=== PATIENT | female | born 1945 | race Two or more races ===

== ENCOUNTER 2019-07-27 19:42 | Inpatient (IN) | payer OTHER ==
[~2019-07-27] VITALS: Ht 134.6 cm; Wt 47.6 kg
--- NOTE | 2019-07-27 19:48 | NUR ---
BIB FROM [facility] FOR BIZZARE BEHAVIOR. PT FOUND WAND[address]RE[address], APPEARS CONFUSED. PER RA, BS 104. PATIENT ALTERED. ORIENTED TO NAME ONLY. PATIENT CHANGED INTOG OWN, ATTACHED TO THE GOLD BEATER. KEPT COMFORTABLE. NEEDS ATTENDED.
[2019-07-27 20:52] LABS: BASOPHILS % (AUTO) 0.4 % (0.0-2.0); EOSINOPHILS % (AUTO) 2.1 % (0.0-6.0); HEMATOCRIT 38 % (33-45); HEMOGLOBIN 12.7 g/dL (11.5-14.8); LYMPHOCYTES # (AUTO) 1.5 /CMM (0.8-4.8); LYMPHOCYTES % (AUTO) 30.4 % (20.0-44.0); MEAN CORPUSCULAR HGB CONC 34 g/dl (31.0-36.0); MEAN CORPUSCULAR VOLUME 97 fL (82-100); MONOCYTES # (AUTO) 0.4 /CMM (0.1-1.30); MONOCYTES % (AUTO) 8.1 % (2.0-12.0); NEUTROPHILS # (AUTO) 2.9 /CMM (1.8-8.9); PLATELET COUNT (AUTO) 218 /CMM (150-450); RED BLOOD CELL COUNT(AUTO) 3.89 MIL/uL (4.0-5.2); WHITE BLOOD COUNT (AUTO) 4.9 K/uL (4.3-11.0)
[2019-07-27] MEDS ORDERED: OLANZAPINE 10 MG VIAL IM ONE ×2 (20:59→21:00)
[2019-07-27 21:00] LABS: APPEARANCE,URINE Clear (CLEAR); BILIRUBIN,URINE Negative (NEGATIVE); BLOOD, URINE Small Ery/uL (NEGATIVE); COLOR,URINE Yellow (YELLOW); KETONES,URINE Negative (NEGATIVE); LEUKOCYTE ESTERASE ,URINE Negative (NEGATIVE); NITRITE, URINE Negative (NEGATIVE); PROTEIN,URINE Negative (NEGATIVE); UGLUCOSE Negative (NEGATIVE); UROBILINOGEN,URINE 0.2 EU/dL (0.2)
[2019-07-27 21:11] LABS: BACTERIA,URINE Few /HPF (None Seen); SQUAMOUS EPITHELIAL CELL,UR Few /HPF (None Seen); WBC,URINE 0-2 /HPF (0-3)
[2019-07-27 21:14] LABS: CALCIUM, SERUM 9.1 mg/dL (8.5-10.1); CARBON DIOXIDE 32 mmol/L (21-32); CHLORIDE 103 mmol/L (98-107); CREATININE 0.7 mg/dL (0.6-1.3); GLUCOSE 90 mg/dL (74-106); SODIUM SERUM 140 mmol/L (136-145); UREA NITROGEN, BLOOD 17 mg/dL (7-18)
[2019-07-27 21:18] LABS: ALANINE AMINOTRANSFERASE 18 U/L (12-78); ALBUMIN 4.1 g/dL (3.4-5.0); ALKALINE PHOSPHATASE 59 U/L (46-116); ASPARTATE AMINOTRANSFERASE 20 U/L (15-37); BILIRUBIN,DIRECT 0.1 mg/dL (0.0-0.2); BILIRUBIN,TOTAL 0.4 mg/dL (0.2-1.0)
[2019-07-27 21:23] LABS: ACETAMINOPHEN < 5 ug/ml (10-30); ALCOHOL, BLOOD < 3 mg/dL (0-0); SALICYLATE 1.5 mg/dL (2.8-20.0)
[2019-07-27 21:48] LABS: THYROID STIMULATING HORMONE 4.105 uIU/mL (0.358-3.74)
--- NOTE | 2019-07-27 22:01 | NUR ---
CT UNSUCCESSFUL, PATIENT MOVING AROUND TOO MUCH. Addendum: 07/27/19 at 2210 by ROALCANCES ADDENDUM: DR. MCCAULEY MADE AWARE, NO NEW ORDER AT THIS TIME.
--- NOTE | 2019-07-27 22:07 | NUR ---
CALLED NURSING SUP FOR M/S BED.
--- NOTE | 2019-07-27 22:23 | NUR ---
Patient is resting comfortably in bed with eyes closed. Easily aroused. VSS
[2019-07-27] MEDS ORDERED: ACETAMINOPHEN 325 MG TABLET PO PRN (22:30)
[2019-07-27] MEDS ORDERED: ZOLPIDEM TARTRATE 5 MG TABLET PO PRN (22:30)
[2019-07-27] MEDS ORDERED: MAGNESIUM HYDROXIDE 30 ML UDC PO PRN (22:30)
[2019-07-27] MEDS ORDERED: ONDANSETRON HCL/PF 4 MG/2 ML VIAL IVP PRN (22:30)
[2019-07-27] MEDS ORDERED: HYDROCODONE/APAP 5/325MG 1 EACH TABLET PO PRN (22:30)
[2019-07-27] MEDS ORDERED: MAG HYDROX/AL HYDROX/SIMETH 30 ML UDC PO PRN (22:30)
--- NOTE | 2019-07-27 22:34 | NUR ---
BED ASSIGN 310.
--- NOTE | 2019-07-27 23:03 | NUR ---
REPORT GIVEN TO UMAIR BALDERAS.
--- NOTE | 2019-07-28 00:29 | NUR ---
PATIENT TRANSFERRED TO ROOM 310-1 IN STABLE CONDITION. NEEDS ATTENDED.
[2019-07-28 00:30] VITALS: BP 140/73
--- NOTE | 2019-07-28 00:30 | NUR ---
ms cleaning supervisor initial notes' admit pt from ER via [place] accompanied by tech ed/woodshop teacher. Dx of Acute Encephalopaty. pt is awake and so confused, trying to get out of bed and pulling her IV site.NO signs of any acute distress . she's alert oriented to her name only. wolof speaking unable to provide any information regarding her medical hx . Per ER nurse pt found in the street wandering on bizzare behavior. skin warm and dry to touch no skin breakdown noted except the toenails on her foot discoloration and long nails noted . no edema noted. respiration even and unlabored . kept her warm and comfortable at all times. will continue monitoring.
[2019-07-28] MEDS: QUETIAPINE FUMARATE 25 MG TABLET PO SCH ×3 (00:49→17:13)
[2019-07-28] MEDS: IV NS 0.9% 1,000 ML IV PRN ×2 (00:49→18:07)
--- NOTE | 2019-07-28 00:49 | NUR ---
forestry patrolman notes IVF NS at 75ml/hr started and routine med as well. snacks also served. Bilateral soft wrist restraint applied as ordered for pt safety. kept her warm and comfortable at all times. bed low and lock in position with side rails #3 up. bed alarm set for safety. will continue monitoring.
[2019-07-28 01:03] VITALS: BP 140/73
--- NOTE | 2019-07-28 06:54 | NUR ---
ms financial dealers closing notes pt resting comfortably in bed with IVF NS at 75ml/hr infusing on her right AC , no redness noted. pt still on soft wrist restraint , pulse presence and skin warm to touch.Stable since admission and still unable to provide information about herself. morning care done with the helped of yarn hauler and reposition pt for comfort. kept her warm and comfortable at all times. bed in low and lock in position with side rails x2 up. place call light at reach. will endorse to am nurse for continuity of care.
[2019-07-28 07:07] LABS: BASOPHILS % (AUTO) 0.3 % (0.0-2.0); EOSINOPHILS % (AUTO) 1.6 % (0.0-6.0); HEMATOCRIT 37 % (33-45); HEMOGLOBIN 12.3 g/dL (11.5-14.8); LYMPHOCYTES % (AUTO) 16.8 % (20.0-44.0); MEAN CORPUSCULAR HGB CONC 33 g/dl (31.0-36.0); MEAN CORPUSCULAR VOLUME 96 fL (82-100); MONOCYTES # (AUTO) 0.5 /CMM (0.1-1.30); MONOCYTES % (AUTO) 7.9 % (2.0-12.0); NEUTROPHILS # (AUTO) 4.2 /CMM (1.8-8.9); NEUTROPHILS % (AUTO) 73.4 % (43.0-81.0); PLATELET COUNT (AUTO) 215 /CMM (150-450); RED BLOOD CELL COUNT(AUTO) 3.83 MIL/uL (4.0-5.2); WHITE BLOOD COUNT (AUTO) 5.8 K/uL (4.3-11.0)
[2019-07-28 07:11] LABS: CALCIUM, SERUM 9.1 mg/dL (8.5-10.1); CREATININE 0.6 mg/dL (0.6-1.3); MAGNESIUM 2.1 mg/dL (1.8-2.4); PHOSPHORUS 3.3 mg/dL (2.5-4.9); POTASSIUM 3.3 mmol/L (3.5-5.1)
[2019-07-28 07:20] LABS: THYROID STIMULATING HORMONE 4.52 uIU/mL (0.358-3.74)
--- NOTE | 2019-07-28 07:30 | NUR ---
M/S RN NOTES PATIENT AWAKE, IN BED. PATIENT RESTLESS WITH BILATERAL SOFT RESTRAINTS. REMOVED RESTRAINTS AND CHECKED FOR REDNESS AND CIRCULATION. SKIN WARM TO TOUCH. PATIENT WITH NO RESPIRATORY DISTRESS, NO S/S OF PAIN AT THIS TIME. IV NS INFUSING AT 75ML/HR ON THE RAC #18G, INTACT AND PATENT. PATIENT'S NEEDS ATTENDED. BED ON LOWEST LOCKED POSITION, CALL LIGHT WITHIN REACH.
[2019-07-28 08:00] VITALS: BP 151/78
[2019-07-28] MEDS: PANTOPRAZOLE 40 MG TABLET.DR PO SCH (09:10)
--- NOTE | 2019-07-28 09:49 | NUR ---
PT AGITATED AND UNCOOPERATIVE. UNABLE TO BRING HER TO CT SCAN. RN WILL CALL BACK WHEN READY.
[2019-07-28] MEDS ORDERED: LORAZEPAM INJ 2 MG/ML VIAL IV ONE (10:30)
[2019-07-28] MEDS: POTASSIUM CL. PREMIX PERIPHER. 50 ML IV SCH ×4 (10:57→14:31)
[2019-07-28] MEDS ORDERED: POTASSIUM CHLORIDE 20 MEQ TAB.PRT.SR PO SCH (11:00)
--- NOTE | 2019-07-28 11:20 | NUR ---
M/S RN NOTES PATIENT WENT FOR HEAD CT. PATIENT COMFORTABLE IN BED RESTING. NO RESPIRATORY DISTRESS, NO S/S OF PAIN.
--- NOTE | 2019-07-28 11:43 | NUR ---
M/S RN NOTES PATIENT CAME BACK FROM CT. PATIENT RESTING IN BED WITH NO ACUTE DISTRESS. PATIENT CONNECTED BACK TO IV POTASSIUM INFUSING AT 50ML/HR ON THE RAC, INTACT AND PATENT. WILL CONTINUE TO MONITOR.
--- NOTE | 2019-07-28 11:56 | NUR ---
Social service consult requested by Dr. Gr due to pt. found on the street confused and to contact [facility]. Pt. is a 74 year old female who was found by paramedics on [facility] and brought to [facility]. Pt. is Scottish speaking, confused and unable to give meaningful answers. KIMBERLY contacted Missing Persons and spoke with Detective Robles. Detective Robles was familiar with the pt. and stated that pt's son Luis Gamez had reported her missing on June 30, however the case was closed after she was located. Pt's full name is Omayra Moreno. Per detective Robles, pt. has a long history of wandering and tends to want to live on the streets. Detective Robles informed KIMBERLY that pt. was even homeless for a year. KIMBERLY contacted pt's son Vitaliy Gamez who informed SW that pt. was recently discharged from [facility] and was supposed to be discharged to an elderly home in [place]. He is unsure as to how pt,. ended up on [facility] in [place]. Pt. receives SSI but pt's son is not aware as to the amount. He got upset when KIMBERLY inquired if pt. is receiving SSI. KIMBERLY informed him, she will have case management specialist Kriss follow up with case management specialist at [facility] as to where pt. was suppose to discharge to. KIMBERLY updated Kriss with aforementioned information.
[2019-07-28 16:00] VITALS: BP 124/87
--- NOTE | 2019-07-28 19:29 | NUR ---
M/S RN NOTES PATIENT RESTING IN BED, NO RESPIRATORY DISTRESS, NO S/S OF PAIN AT THIS TIME. IV ACCESS SITE INTACT AND PATENT. PATIENT'S NEEDS ATTENDED. BED ON LOWEST LOCKED POSITION, CALL LIGHT WITHIN REACH. WILL ENDORSE TO ONCOMING NURSE.
--- NOTE | 2019-07-28 19:30 | NUR ---
ms iris notes received report from am nurse for and seen pt in bed still confused -re-oriented where she at but she's not listening. no signs of any discomfort and not in any acute distress noted. she still with IVF NS at 75ml/hr infusing at this time. kept her warm and comfortable at all times. she still on bilateral wrist restraint. skin warm and dry to touch and pulse present. will continue monitoring.
[2019-07-28 20:48] VITALS: BP 119/74
--- NOTE | 2019-07-29 01:41 | NUR ---
ms refrigerator crater notes pt sleeping comfortably in bed without any acute distress noted. IVF NS at 75ml/hr infusing at this time. kept her warm and comfortable at all times. place call light at reach. will continue monitoring.
[2019-07-29 07:05] LABS: BASOPHILS % (AUTO) 0.2 % (0.0-2.0); EOSINOPHILS % (AUTO) 5.1 % (0.0-6.0); HEMATOCRIT 36 % (33-45); LYMPHOCYTES # (AUTO) 1.2 /CMM (0.8-4.8); LYMPHOCYTES % (AUTO) 25.9 % (20.0-44.0); MEAN CORPUSCULAR HGB CONC 34 g/dl (31.0-36.0); MEAN CORPUSCULAR VOLUME 97 fL (82-100); MONOCYTES # (AUTO) 0.4 /CMM (0.1-1.30); MONOCYTES % (AUTO) 8.7 % (2.0-12.0); NEUTROPHILS # (AUTO) 2.8 /CMM (1.8-8.9); NEUTROPHILS % (AUTO) 60.1 % (43.0-81.0); PLATELET COUNT (AUTO) 201 /CMM (150-450); RED BLOOD CELL COUNT(AUTO) 3.67 MIL/uL (4.0-5.2); WHITE BLOOD COUNT (AUTO) 4.6 K/uL (4.3-11.0)
--- NOTE | 2019-07-29 07:07 | NUR ---
ms cement side laster closing notes pt back to rest after morning care rendered with the helped of aviation electronic warfare operator as well. reposition pt for comfort. Stable terri the night and slept well. no signs of any acute distress noted. ate well with some helped. still on soft restrain , pulse presence and skin warm to touch. will endorse to am nurse that if the sitter comes she will call the doctor to get order.
[2019-07-29 07:08] LABS: CALCIUM, SERUM 8.6 mg/dL (8.5-10.1); CREATININE 0.7 mg/dL (0.6-1.3); MAGNESIUM 2.1 mg/dL (1.8-2.4); PHOSPHORUS 3.5 mg/dL (2.5-4.9); POTASSIUM 3.6 mmol/L (3.5-5.1)
--- NOTE | 2019-07-29 07:25 | NUR ---
M/S RN NOTES PATIENT AWAKE, IN BED. IN NO RESPIRATORY DISTRESS, NO S/S OF PAIN AT THIS TIME. PATIENT WITH BILATERAL SOFT RESTRAINTS. REMOVED RESTRAINTS AND CHECKED FOR REDNESS AND CIRCULATION. SKIN WARM TO TOUCH. IV NS INFUSING AT 75ML/HR ON THE RAC #18G, INTACT AND PATENT. PATIENT'S NEEDS ATTENDED. BED ON LOWEST LOCKED POSITION, CALL LIGHT WITHIN REACH.
[2019-07-29 08:00] VITALS: BP 150/76
[2019-07-29] MEDS: PANTOPRAZOLE 40 MG TABLET.DR PO SCH (08:09)
[2019-07-29] MEDS: QUETIAPINE FUMARATE 25 MG TABLET PO SCH ×2 (08:10→17:02)
[2019-07-29] MEDS ORDERED: HALOPERIDOL LACTATE INJ 5 MG/ML VIAL IM ONE (10:30)
[2019-07-29 16:00] VITALS: BP 130/67
--- NOTE | 2019-07-29 18:40 | NUR ---
M/S RN NOTES PATIENT AWAKE, IN BED. IN NO RESPIRATORY DISTRESS, NO S/S OF PAIN AT THIS TIME. PATIENT WITH BILATERAL SOFT RESTRAINTS. REMOVED RESTRAINTS AND CHECKED FOR REDNESS AND CIRCULATION. SKIN WARM TO TOUCH. IV NS INFUSING AT 75ML/HR ON THE RT WRIST #22G INTACT AND PATENT. PATIENT'S NEEDS ATTENDED. BED ON LOWEST LOCKED POSITION, CALL LIGHT WITHIN REACH.
--- NOTE | 2019-07-29 19:30 | NUR ---
M/S RN PM OPENING NOTES BEDSIDE REPORT RECIEVED FROM SAILAJA RN AT THE BEDSIDE. PATIENT AWAKE, IN BED. IRISH SPEAKING ONLY. PATIENT CONFUSED, ASSISTED WITH TRANSLATION FROM [facility] TOLL COLLECTOR. PATIENT ALERT AND ORIENTED X1. IN NO RESPIRATORY DISTRESS, NO S/S OF PAIN AT THIS TIME. PATIENT WITH BILATERAL SOFT RESTRAINTS. RESTRAINTS REMOVED AND WRISTS CHECKED FOR REDNESS AND CIRCULATION. SKIN WARM TO TOUCH CAP REFIL LESS THEN 3 SECONDS. . IV NS INFUSING AT 75ML/HR ON THE RT WRIST #22G INTACT AND PATENT. PATIENT'S NEEDS ATTENDED. BED ON LOWEST LOCKED POSITION, CALL LIGHT WITHIN REACH. RESTRAINTS REAPPLIED TO BILAT WRISTS.
[2019-07-29 20:00] VITALS: BP 127/72
[2019-07-29] MEDS ORDERED: LORAZEPAM INJ 2 MG/ML VIAL IM ONE (20:30)
[2019-07-29] MEDS ORDERED: diphenhydrAMINE HCL 50 MG/ML VIAL IM ONE (20:30)
--- NOTE | 2019-07-29 20:30 | NUR ---
PATRICIA RODRÍGUEZ CALLED PATIENT THRASHING IN BED WITH RESTRAINTS ATTEMPTING TO CLIMB OUT OF BED. PATIENT DISLODGED IV TO RIGHT WRIST DURING ATTEMPT TO GET OUT OF BED. RESTRAINTS RELEASED PATIENT REPOSITINONED IN BED AND RESTRAINTS REAPPLIED. NEW ORDERS RECIEVED FROM ZAHRAA AND LEONELA IM X1 TIME.
[2019-07-30] MEDS: IV NS 0.9% 1,000 ML IV PRN ×2 (05:24→21:33)
--- NOTE | 2019-07-30 06:53 | NUR ---
M/S RN PM CLOSING NOTES PATIENT SEEN WITH EYES CLOSED IN BED. IN NO RESPIRATORY DISTRESS, NO S/S OF PAIN AT THIS TIME. PATIENT WITH BILATERAL SOFT RESTRAINTS. RESTRAINTS REMOVED AND WRISTS CHECKED FOR REDNESS AND CIRCULATION. SKIN WARM TO TOUCH CAP REFIL LESS THEN 3 SECONDS. . IV NS INFUSING AT 75ML/HR ON THE RT FA #20G INTACT AND PATENT. PATIENT'S NEEDS ATTENDED. BED ON LOWEST LOCKED SRX3
--- NOTE | 2019-07-30 07:19 | NUR ---
RN OPENING NOTE PT RECEIVED IN BED AT LOWEST AND LOCKED POSITION WITH SIDE RAILS UP X2, A/O X1 MAORI SPEAKING, BREATHING EVEN AND UNLABORED ON RA, NO S/S OF ANY DISTRESS OR PAIN AT THIS TIME, IV IS PATENT AND INTACT, NOTED TO HAVE ENEDELIA SOFT WRIST RESTRAINT, PER NIGHT RN PT IS NOT COMPLIANT ENOUGH TO HAVE CTA PERFORMED, AWAITING PSYCH CONSULT, SAFETY PRECAUTIONS IN PLACE, CALL LIGHT IN REACH, WILL MONITOR ACCORDINGLY
[2019-07-30 08:00] VITALS: BP 155/78
[2019-07-30 08:00] LABS: BASOPHILS % (AUTO) 0.6 % (0.0-2.0); EOSINOPHILS % (AUTO) 5.3 % (0.0-6.0); HEMATOCRIT 35 % (33-45); HEMOGLOBIN 11.9 g/dL (11.5-14.8); LYMPHOCYTES % (AUTO) 18.9 % (20.0-44.0); MEAN CORPUSCULAR HGB CONC 34 g/dl (31.0-36.0); MEAN CORPUSCULAR VOLUME 96 fL (82-100); MONOCYTES # (AUTO) 0.4 /CMM (0.1-1.30); MONOCYTES % (AUTO) 7.8 % (2.0-12.0); NEUTROPHILS # (AUTO) 3.6 /CMM (1.8-8.9); NEUTROPHILS % (AUTO) 67.4 % (43.0-81.0); PLATELET COUNT (AUTO) 191 /CMM (150-450); RED BLOOD CELL COUNT(AUTO) 3.63 MIL/uL (4.0-5.2); WHITE BLOOD COUNT (AUTO) 5.4 K/uL (4.3-11.0)
[2019-07-30] MEDS: PANTOPRAZOLE 40 MG TABLET.DR PO SCH (08:02)
[2019-07-30] MEDS: QUETIAPINE FUMARATE 25 MG TABLET PO SCH ×2 (08:02→16:16)
[2019-07-30 08:12] LABS: CALCIUM, SERUM 8.5 mg/dL (8.5-10.1); CREATININE 0.7 mg/dL (0.6-1.3); MAGNESIUM 1.9 mg/dL (1.8-2.4); PHOSPHORUS 3.5 mg/dL (2.5-4.9); POTASSIUM 3.2 mmol/L (3.5-5.1)
--- NOTE | 2019-07-30 09:23 | NUR ---
RN NOTE CALLED TO PT LEONARD WARNER [phone], INFORMED AND EDUCATED ABOUT NEUROLOGIST REQUEST FOR CTA OF BRAIN AND CAROTID. LEONARD THOMAS VERBALIZED UNDERSTANDING AND UNDERSTOOD THE INTENDED PURPOSE OF THE PROCEDURE, CONSENT GIVEN AND VERIFIED BY SHERRIE DE LA TORRE AT THIS TIME
--- NOTE | 2019-07-30 09:30 | NUR ---
RN NOTE RADIOLOGY CALLED AND INFORMED OF OBTAINING CONSENT FOR PROCEDURE, INFORMED THAT PT UNABLE TO STATE IF THEY HAVE ANY ALLERGIES OR USE METFORMIN. THEY WERE MADE AWARE AND WILL COME AN TAKE THE PT SOON THEY ARE ABLE.
[2019-07-30] MEDS ORDERED: IOHEXOL-350 100 ML VIAL IV ONE (10:08)
[2019-07-30] MEDS ORDERED: IV NS 0.9% 250 ML IV ONE (10:08)
[2019-07-30] MEDS ORDERED: CT SWABBABLE VALVE TRANS SET 1 EA INFUS.SET MC ONE (10:08)
--- NOTE | 2019-07-30 10:39 | NUR ---
RN NOTE PT BROUGHT BACK FROM CTA AT THIS TIME
[2019-07-30] MEDS: POTASSIUM CHLORIDE 20 MEQ TAB.PRT.SR PO SCH (10:45)
[2019-07-30] MEDS ORDERED: HALOPERIDOL LACTATE INJ 5 MG/ML VIAL IM STA (15:09)
--- NOTE | 2019-07-30 15:11 | NUR ---
RN NOTE HOSPITALIST JEANNA ESCOBEDO NOTIFIED OF PT BEING ANXIOUS AND RESTLESS AND THAT PT IS CONSISTENTLY REMOVING BEDSHEETS AND CLOTHING. ORDER FOR ONE TIME DOSE OF 1 MG HALDOL IM GIVEN. WILL IMPLEMENT AND CARRYOUT ACCORDINGLY
[2019-07-30 16:00] VITALS: BP 134/75
--- NOTE | 2019-07-30 18:24 | NUR ---
RN CLOSING NOTE PT IN BED AT LOWEST AND LOCKED POSITION WITH SIDE RAILS UP X2, A/O X1 RWANDAN SPEAKING ALTERED, BREATHING EVEN AND UNLABORED WITH NO DISTRESS OR ANY PAIN AT THIS TIME, IV IS PATENT AND INTACT, ENEDELIA SOFT WRIST RESTRAINT IN PLACE, AWAITING PSYCH CONSULT, SAFETY PRECAUTIONS IN PLACE, CALL LIGHT IN REACH, ALL NEEDS ATTENDED TO, WILL ENDORSE TO NIGHT RN FOR DEA.
--- NOTE | 2019-07-30 19:44 | NUR ---
MS RN RECEIVE PT IN BED A/O X1, MONGOLIAN SPEAKING, STABLE AND NOT IN DISTRESS, RESPIRATIONS EVEN AND UNLABORED. WILL CONT TO MTR
[2019-07-30 20:00] VITALS: BP 117/58
--- NOTE | 2019-07-31 06:16 | NUR ---
MS RN ASLEEP AND EASILY AWAKEN, SLEPT WELL. CALM AT THIS TIME. FREQUENT RE-ORIENTATION PROVIDED. REDIRECT PT. BILATERAL SOFT RESTRAINT ON WITH GOOD CIRCULATION. NO S/S OF DISTRESS, ASSISTED REPOSITION Q2HR, NURSING CARE RENDERED, KEPT CLEAN AND DRY AND COMFORTABLE. NEEDS ATTENDED AND ANTICIPATED. PT ABLE TO WALK TO THE RESTROOM ASSISTED FOR URINATION. SAFETY MEASURES AT ALL TIMES. ENDORSE TO THE NEXT SHIFT.
[2019-07-31 06:58] LABS: BASOPHILS % (AUTO) 0.7 % (0.0-2.0); EOSINOPHILS % (AUTO) 4.8 % (0.0-6.0); HEMATOCRIT 33 % (33-45); LYMPHOCYTES # (AUTO) 1.1 /CMM (0.8-4.8); LYMPHOCYTES % (AUTO) 20.2 % (20.0-44.0); MEAN CORPUSCULAR HGB CONC 34 g/dl (31.0-36.0); MEAN CORPUSCULAR VOLUME 97 fL (82-100); MONOCYTES # (AUTO) 0.5 /CMM (0.1-1.30); MONOCYTES % (AUTO) 8.2 % (2.0-12.0); NEUTROPHILS # (AUTO) 3.7 /CMM (1.8-8.9); NEUTROPHILS % (AUTO) 66.1 % (43.0-81.0); PLATELET COUNT (AUTO) 127 /CMM (150-450); RED BLOOD CELL COUNT(AUTO) 3.36 MIL/uL (4.0-5.2); WHITE BLOOD COUNT (AUTO) 5.6 K/uL (4.3-11.0)
--- NOTE | 2019-07-31 07:11 | NUR ---
RN OPENING NOTE PT RECEIVED IN BED AT LOWEST AND LOCKED POSITION WITH SIDE RAILS UP X2, A/O X1 ROMANSH SPEAKING, BREATHING EVEN AND UNLABORED ON RA, NO S/S OF ANY DISTRESS OR PAIN AT THIS TIME, IV IS PATENT AND INTACT,ENEDELIA SOFT WRIST RESTRAINT IN PLACE, AWAITING PSYCH CONSULT, SAFETY PRECAUTIONS IN PLACE, CALL LIGHT IN REACH, WILL MONITOR ACCORDINGLY
[2019-07-31 08:00] VITALS: BP 149/73
[2019-07-31] MEDS: PANTOPRAZOLE 40 MG TABLET.DR PO SCH (08:08)
[2019-07-31] MEDS: QUETIAPINE FUMARATE 25 MG TABLET PO SCH ×2 (08:08→16:28)
[2019-07-31 08:50] LABS: CALCIUM, SERUM 8.4 mg/dL (8.5-10.1); CREATININE 0.7 mg/dL (0.6-1.3); MAGNESIUM 1.9 mg/dL (1.8-2.4); PHOSPHORUS 3.6 mg/dL (2.5-4.9); POTASSIUM 2.9 mmol/L (3.5-5.1)
[2019-07-31] MEDS: POTASSIUM CHLORIDE 20 MEQ TAB.PRT.SR PO SCH ×2 (10:02→11:31)
[2019-07-31] MEDS ORDERED: POTASSIUM CL. PREMIX PERIPHER. 50 ML IV SCH (14:00)
[2019-07-31] MEDS: IV NS 0.9% 1,000 ML IV PRN (15:07)
[2019-07-31 16:00] VITALS: BP 132/72
--- NOTE | 2019-07-31 18:22 | NUR ---
RN CLOSING NOTE PT IN BED AT LOWEST AND LOCKED POSITION WITH SIDE RAILS UP X2, A/O X1 HONG KONGER SPEAKING CONFUSED, BREATHING EVEN AND UNLABORED WITH NO DISTRESS OR ANY PAIN AT THIS TIME, IV IS PATENT AND INTACT, BILATERAL SOFT WRIST RESTRAINT IN PLACE, SAFETY PRECAUTIONS IN PLACE, CALL LIGHT IN REACH, ALL NEEDS ATTENDED TO, WILL ENDORSE TO NIGHT RN FOR DEA.
--- NOTE | 2019-07-31 19:34 | NUR ---
MS/RN OPENING NOTES RECEIVED PATIENT IN BED, AWAKE, ABLE TO RESPOND WITH NOD AND TALKING TO SELF IN TAMAZIGHT/ RESPIRATIONS EVEN AND UNLABORED. SKIN WARM TO TOUCH. REQUIRE ASSISTANCE AND MONITORING. BELONGINGS WITHIN REACH, BED LOCKED, CALL LIGHTS WITHIN REACH. NEEDED RESTRAINTS. TO MONITOR.
[2019-07-31 20:00] VITALS: BP 133/84
[2019-07-31] MEDS: ATORVASTATIN 10 MG TABLET PO SCH (21:18)
[2019-08-01 06:23] LABS: CALCIUM, SERUM 8.3 mg/dL (8.5-10.1); CREATININE 0.7 mg/dL (0.6-1.3); MAGNESIUM 1.8 mg/dL (1.8-2.4); PHOSPHORUS 3.1 mg/dL (2.5-4.9); POTASSIUM 3.3 mmol/L (3.5-5.1)
[2019-08-01 06:28] LABS: BASOPHILS % (AUTO) 0.5 % (0.0-2.0); EOSINOPHILS % (AUTO) 7.5 % (0.0-6.0); HEMATOCRIT 31 % (33-45); HEMOGLOBIN 10.8 g/dL (11.5-14.8); LYMPHOCYTES # (AUTO) 1.3 /CMM (0.8-4.8); LYMPHOCYTES % (AUTO) 26.9 % (20.0-44.0); MEAN CORPUSCULAR HGB CONC 34 g/dl (31.0-36.0); MEAN CORPUSCULAR VOLUME 96 fL (82-100); MONOCYTES # (AUTO) 0.3 /CMM (0.1-1.30); MONOCYTES % (AUTO) 6.7 % (2.0-12.0); NEUTROPHILS # (AUTO) 2.8 /CMM (1.8-8.9); NEUTROPHILS % (AUTO) 58.4 % (43.0-81.0); PLATELET COUNT (AUTO) 172 /CMM (150-450); RED BLOOD CELL COUNT(AUTO) 3.28 MIL/uL (4.0-5.2); WHITE BLOOD COUNT (AUTO) 4.7 K/uL (4.3-11.0)
--- NOTE | 2019-08-01 06:38 | NUR ---
MS/RN NOTES PATIENT ASSISTED TO BATHROOM, ABLE TO URINATE. WEAK GAIT REQUIRE ASSISTANCE FOR SAFETY. BED ALARM ON.
--- NOTE | 2019-08-01 06:41 | NUR ---
RN CLOSING NOTES PATIENT ALERT, ORIENTED X2, ABLE TO VERBALIZE NEEDS, REQUIRE EXTENSIVE ASSISTANCE PATIENT HAS UNSTEADY GAIT. RESPIRATIONS EVEN AND UNLABORED. KEPT COMFORTABLE. BED ALARM ON. SKIN WARM TO TOUCH. WILL MONITOR.
--- NOTE | 2019-08-01 07:36 | NUR ---
M/S RN NOTES PATIENT RECEIVED RESTING IN BED A/O x2 FRENCH SPEAKING. NO SIGNS OF DISTRESS AND NO CURRENT COMPLAINS OF PAIN, N/V. BILATERAL SOFT RESTRAINTS REMAINED PLACED AND RIGHT AC#18 IV LOCATED. SAFETY PRECAUTIONS IN PLACE WITH BED IN LOWEST POSITION, LOCKED, AND CALL LIGHT WITHIN REACH. WILL CONTINUE TO MONITOR.
[2019-08-01 08:00] VITALS: BP 151/68
[2019-08-01] MEDS: PANTOPRAZOLE 40 MG TABLET.DR PO SCH (08:15)
[2019-08-01] MEDS: QUETIAPINE FUMARATE 25 MG TABLET PO SCH ×2 (08:15→17:25)
[2019-08-01] MEDS: HALOPERIDOL 1 MG TABLET PO SCH ×3 (08:15→17:25)
[2019-08-01] MEDS ORDERED: POTASSIUM CHLORIDE 20 MEQ TAB.PRT.SR PO ONE (10:30)
[2019-08-01 16:00] VITALS: BP 137/75
--- NOTE | 2019-08-01 18:40 | NUR ---
MS RN CLOSING NOTES PATIENT IS A/O x2 ANDORRAN SPEAKING. PATIENT SHOWS NO SIGN OF DISTRESS AND NO CURRENT COMPLAINTS OF ANY PAIN OR NAUSEA. BILATERAL SOFT RESTRAINTS REMAIN PLACED ON PATIENT. SKIN INTACT WITH GOOD PERIPHERAL PULSES NOTED. IV LOCATED ON RIGHT AC #18. SAFETY PRECAUTIONS ARE IN PLACE WITH BED IN LOWEST POSITION, LOCKED, AND CALL LIGHT WITHIN REACH. WILL ENDORSE TO OTHER SPATIAL SCIENTIST ABOUT DEA.
--- NOTE | 2019-08-01 19:00 | NUR ---
RN MS OPENING NOTES RECEIVED PATIENT IN BED AWAKE ALERT AND ORIENTED TO SELF, ABLE TO MAKE SIMPLE NEEDS KNOWN SUCH TOILETING. FLUIDS OFFERED TOLERATED WELL, ON SOFT WRIST BILATERAL RESTRAINTS PT REMOVED MEDICAL TUBING, SKIN ASSESSED REMAINS INTACT , NO REDNESS, PULSES PRESENT, NEW IV SITE TO RIGHT FA #22 G INTACT AND PATENT, NO REDNESS, NO INFILTRATION PRESENT, IVF RUNNING ORDERED, REPOSITIONED, ORIENTED TO STAFF AND CALL LIGHT AND KEPT WITHIN REACH, BED ALARM IN PLACE, SAFETY PRECAUTIONS RENDERED, ALL NEEDS ATTENDED AT THIS TIME WILL CONTINUE TO MONITOR.
[2019-08-01 20:00] VITALS: BP 124/66
[2019-08-01 20:44] VITALS: BP 129/66
--- NOTE | 2019-08-01 21:39 | NUR ---
RN MS NOTES PATIENT AMBULATED TO THE BATHROOM WITH ASSIST.
[2019-08-01] MEDS: ATORVASTATIN 10 MG TABLET PO SCH (22:30)
--- NOTE | 2019-08-01 22:30 | NUR ---
RN MS NOTES NOTED PATIENT CONFUSED, ATTEMPTING TO REMOVE SOFT BILATERAL RESTRAINTS AND MANAGING TO PULL ON MEDICAL TUBING, ATTEMPTING TO GET OUT OUT BED, PATIENT CONFUSED BELIEVES ITS DAY TIME AND ITS NOT TIME TO SLEEP ,PER NURSING ASSESSMENT AMBIEN PRN GIVEN. WILL CONTINUE TO MONITOR FOR EFFECTIVENESS.
[2019-08-02] MEDS: IV NS 0.9% 1,000 ML IV PRN (00:16)
--- NOTE | 2019-08-02 06:52 | NUR ---
RN MS CLOSING NOTES PATIENT IN BED AWAKE ALERT AND ORIENTED TO SELF, ABLE TO MAKE SIMPLE NEEDS KNOWN SUCH TOILETING. FLUIDS OFFERED TOLERATED WELL, ON SOFT WRIST BILATERAL RESTRAINTS PT REMOVED MEDICAL TUBING, SKIN ASSESSED REMAINS INTACT , NO REDNESS, PULSES PRESENT, NEW IV SITE TO RIGHT FA #22 G INTACT AND PATENT, NO REDNESS, NO INFILTRATION PRESENT, IVF RUNNING ORDERED, REPOSITIONED, CALL LIGHT KEPT WITHIN REACH, BED ALARM IN PLACE, SAFETY PRECAUTIONS RENDERED, ALL NEEDS ATTENDED AT THIS TIME WILL CONTINUE TO MONITOR AND ENDORSE TO NEXT SHIFT.
[2019-08-02 07:57] VITALS: BP 137/88
--- NOTE | 2019-08-02 08:10 | NUR ---
ms rn received patient , awake, confused w/ bilateral soft wrist restarin, no distress noted, debnies pain at this time,all needs attended.
[2019-08-02] MEDS: QUETIAPINE FUMARATE 25 MG TABLET PO SCH ×2 (09:13→18:16)
[2019-08-02] MEDS: PANTOPRAZOLE 40 MG TABLET.DR PO SCH (09:13)
[2019-08-02] MEDS: HALOPERIDOL 1 MG TABLET PO SCH ×3 (09:13→18:16)
--- NOTE | 2019-08-02 11:00 | NUR ---
ms new breakfast served.due meds given, tolerated well.
--- NOTE | 2019-08-02 11:30 | NUR ---
ms rn was seen by md escalante/ ida to go home today, all needs attended.
[2019-08-02] MEDS ORDERED: POTASSIUM CHLORIDE 20 MEQ TAB.PRT.SR PO ONE (12:00)
[2019-08-02] MEDS ORDERED: QUET25TA PO (12:12)
[2019-08-02] MEDS ORDERED: DONE5TAB7 PO (12:12)
[2019-08-02] MEDS ORDERED: ATOR10TA PO (12:12)
[2019-08-02] MEDS ORDERED: HALO1TAB5 PO (12:12)
--- NOTE | 2019-08-02 15:30 | NUR ---
ms furniture assembler and installer member called, will clam picker nimisha at 8pm.
[2019-08-02 16:16] VITALS: BP 132/71
--- NOTE | 2019-08-02 18:40 | NUR ---
MS RN ON BED,NO DISTRESS NOTED,ALL NEEDS ATTENDED.
--- NOTE | 2019-08-02 19:30 | NUR ---
RN PM OPENING NOTE. BEDSIDE REPORT RECIEVED FROM LETHA BALDERAS. PATIENT BEING DISCHARGED TO [facility] [phone] [address], [place] [address]. WITH PROSPECTIVE PICKUPTIME AT 2030 BY GEORGE SIMON.
[2019-08-02 19:57] VITALS: BP 147/76
--- NOTE | 2019-08-02 20:00 | NUR ---
TRANSPORT AT BEDSIDE TO TAKE PATIENT TO ASSISTED LIVING HOME. report given to elsie canton UNIT #[address] BAREKR. PATIENT BEING DISCHARGED. IV REMOVED FROM RIGHT UPPERARM #22 CATHETER IN TACT MILD REDNESS NOTED TO LEFT ARM, NOT WARM TO TOUCH. AREA BANDAGED NO BLEEDING OR OTHER COMPLICATIONS NOTED. PATIENT ALERT AND ORIENTED X1 GUAMANIAN SPEAKING ONLY. CONFIRMED DELIVERY ADDRESS WITH EMT PATIENT IN NO APPARENT DISTRESS VSS.
[2019-08-02] MEDS ORDERED: DONEPEZIL 5 MG TABLET PO SCH (22:00)
== END 2019-08-02 20:25 | disposition home or self-care (01) | DRG 56 ==
LOC: ER 19:42 → MED 23:07
PROVIDERS: ADMIT Nurse Practitioner Acute Care; ATTEND Hospitalist
DX: G30.9 Alzheimer's disease, unspecified (principal); G93.41 Metabolic encephalopathy; E78.5 Hyperlipidemia, unspecified; E87.6 Hypokalemia; F02.80 Dementia in other diseases classified elsewhere, unspecified severity, without behavioral disturbance, psychotic disturbance, mood disturbance, and anxiety; E87.0 Hyperosmolality and hypernatremia; R53.1 Weakness; F29 Unspecified psychosis not due to a substance or known physiological condition
CPT/HCPCS: 36415; 70450-TC; 70496-TC; 70498-TC; 71045-TC; 80048-TC; 80061-TC; 80076-TC; 80305; 81000-TC; 82140-TC; 83735-TC; 84100-TC; 84439-TC; 84443-TC; 84481; 85025-TC; 87081-TC; 97112-TC; 97116-TC; 97530-TC; G0378; G0480; J1200; J1630; J2060; J3480; J3490; J7030; J7050; Q9967

== ENCOUNTER 2023-06-05 15:36 | Emergency (ER) | payer OTHER ==
[~2023-06-05] VITALS: Ht 162.6 cm; Wt 49.9 kg
[~2023-06-05 15:36] MED LIST: ATOR10TA PO; DONE5TAB7 PO; HALO1TAB5 PO; QUET25TA PO
[2023-06-05 17:45] LABS: BASOPHILS % (AUTO) 0.9 % (0.0-2.0); EOSINOPHILS # (AUTO) 0.1 K/uL (0.0-0.7); EOSINOPHILS % (AUTO) 3.3 % (0.0-6.0); HEMATOCRIT 32 % (33-45); HEMOGLOBIN 10.6 g/dL (11.5-14.8); LYMPHOCYTES # (AUTO) 1.7 K/uL (0.8-4.8); MEAN CORPUSCULAR HEMOGLOBIN 33 PG (26.0-33.0); MEAN CORPUSCULAR HGB CONC 33 g/dl (31.0-36.0); MEAN CORPUSCULAR VOLUME 99 fL (82-100); MONOCYTES # (AUTO) 0.3 K/uL (0.1-1.30); MONOCYTES % (AUTO) 7.5 % (2.0-12.0); NEUTROPHILS % (AUTO) 48.3 % (43.0-81.0); PLATELET COUNT (AUTO) 219 K/uL (150-450); RED BLOOD CELL COUNT(AUTO) 3.25 MIL/uL (4.0-5.2); RED CELL DISTRIBUTION WIDTH 13.1 % (11.5-15.0); WHITE BLOOD COUNT (AUTO) 4.2 K/uL (4.3-11.0)
[2023-06-05 17:55] LABS: CARBON DIOXIDE 31 mmol/L (21-32); CHLORIDE 105 mmol/L (98-107); CREATININE 0.7 mg/dL (0.6-1.3); GLUCOSE 101 mg/dL (74-106); POTASSIUM 3.4 mmol/L (3.5-5.1); SODIUM SERUM 141 mmol/L (136-145); UREA NITROGEN, BLOOD 23 mg/dL (7-18)
[2023-06-05 18:00] LABS: ALANINE AMINOTRANSFERASE 40 U/L (12-78); ALBUMIN 3.2 g/dL (3.4-5.0); ALCOHOL, BLOOD < 3 mg/dL (0-10); ALKALINE PHOSPHATASE 62 U/L (46-116); ASPARTATE AMINOTRANSFERASE 34 U/L (15-37); BILIRUBIN,DIRECT 0.1 mg/dL (0.0-0.2); BILIRUBIN,TOTAL 0.3 mg/dL (0.2-1.0); TOTAL PROTEIN, SERUM 7.3 g/dL (6.4-8.2)
[2023-06-05 18:31] LABS: ACETAMINOPHEN <10 ug/ml (10-30); SALICYLATE < 2.3 mg/dL (2.8-20.0)
[2023-06-05 19:40] LABS: APPEARANCE,URINE SLIGHTLY CLOUDY (CLEAR); BILIRUBIN,URINE NEGATIVE (NEGATIVE); BLOOD, URINE 1+ Ery/uL (NEGATIVE); COLOR,URINE YELLOW (YELLOW); KETONES,URINE NEGATIVE (NEGATIVE); LEUKOCYTE ESTERASE ,URINE 1+ (NEGATIVE); NITRITE, URINE NEGATIVE (NEGATIVE); PH,URINE 7.5 (5.0-8.0); PROTEIN,URINE TRACE mg/dl (NEGATIVE); UGLUCOSE NEGATIVE (NEGATIVE)
[2023-06-05 19:58] LABS: AMPHETAMINE, URINE NEGATIVE (NEGATIVE); BARBITURATE, URINE NEGATIVE (NEGATIVE); BENZODIAZEPINE, URINE NEGATIVE (NEGATIVE); CANNABINOID, URINE NEGATIVE (NEGATIVE); COCCAINE, URINE NEGATIVE (NEGATIVE); OPIATE, URINE NEGATIVE (NEGATIVE); PHENCYCLIDINE SCREEN,URINE NEGATIVE (NEGATIVE)
[2023-06-05 19:59] LABS: ADD URINE CULTURE YES; BACTERIA,URINE 2+ /HPF (None Seen); TRIPLE PHOSPHATE CRYSTAL,UR Few /HPF (None Seen); URINE AMORPHOUS PHOSPHATES Moderate /HPF (None Seen)
[2023-06-06] MEDS ORDERED: OLANZAPINE 10 MG VIAL IM ONE ×2 (00:01)
[2023-06-06] MEDS ORDERED: QUET50TA PO (17:29)
[2023-06-06] MEDS ORDERED: ACET-868 PO (17:29)
[2023-06-06] MEDS ORDERED: FERR325T23 PO (17:29)
[2023-06-06] MEDS ORDERED: MELA5TAB PO (17:29)
[2023-06-06] MEDS ORDERED: ATOR20TA PO (17:29)
[2023-06-06] MEDS ORDERED: OMEP20CA15 PO (17:29)
[2023-06-06] MEDS ORDERED: FOLI0.4T6 PO (17:29)
[2023-06-06] MEDS ORDERED: ASCO-352 PO (17:29)
[2023-06-06] MEDS ORDERED: DONE10TA44 PO (17:29)
[2023-06-06 22:32] VITALS: BP 97/71; TEMP 98; O2SAT 98
== END 2023-06-06 22:33 ==
LOC: ER 17:18
DX: R46.1 Bizarre personal appearance (principal); K21.9 Gastro-esophageal reflux disease without esophagitis; Z20.822 Contact with and (suspected) exposure to COVID-19
CPT/HCPCS: 99285; 71045; 70450; 85025; 80048; 87086; 80076; 81001; 36415; 87426; 80143; 80320; 80307; 96372; C9803; J3490; G0480